=== PATIENT | male | born 1945 | race Caucasian/White ===

== ENCOUNTER 2019-04-16 16:20 | Emergency (ER) | payer OTHER ==
[~2019-04-16] VITALS: Ht 172.7 cm; Wt 90.7 kg
[2019-04-16 16:26] VITALS: BP_SYST 135
[2019-04-16 17:07] VITALS: BP_SYST 135
== END 2019-04-16 17:07 | disposition home or self-care (01) ==
LOC: SED 16:20
DX: Z04.1 Encounter for examination and observation following transport accident (principal); I10 Essential (primary) hypertension; J44.9 Chronic obstructive pulmonary disease, unspecified; V43.92XA Unspecified car occupant injured in collision with other type car in traffic accident, initial encounter; Y93.89 Activity, other specified; Y92.89 Other specified places as the place of occurrence of the external cause; Y99.8 Other external cause status
CPT/HCPCS: 99281